=== PATIENT | female | born 1990 | race African-American/Black ===

== ENCOUNTER 2016-10-21 17:11 | Emergency (ER) | payer OTHER | END 2016-10-21 19:55 | disposition home or self-care (01) | DX: N92.1 Excessive and frequent menstruation with irregular cycle (principal) ==

== ENCOUNTER 2017-07-03 02:34 | Outpatient (CLI) | payer OTHER | END 2017-07-03 02:35 | disposition critical access hospital (66) | LOC: EMS 02:34 | PROVIDERS: ATTEND Surgery | DX: R55 Syncope and collapse (principal) | CPT/HCPCS: A0425; A0427 ==

== ENCOUNTER 2017-07-03 02:51 | Observation (INO) | payer OTHER ==
--- NOTE | 2017-07-03 03:13 | ED Physician Documentation ---
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 was in another room, but heard a noise suggestive of someone falling onto the ground, he immediately went and looked in the bathroom and found his on the floor, unconscious, with tonic stiffening of both upper extremities. he says she did not appear to be breathing for approximately 10 seconds, then started slow, gasping breaths, and rapidly followed by normal breathing. states patient was unconscious and unresponsive for approximately 60 to 90 seconds. On arrival to emergency department, patient is vomiting, but by the time of my evaluation, which was shortly after arrival, patient is awake, alert, oriented times three, smiling, and in no apparent distress and asymptomatic. Per medic report, patient had stable vital signs on their arrival, and en route, although she appears to be in atrial fibrillation on their EKG. Patient denies history of any cardiac problems including dysrhythmias, and denies history of syncope. 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 : None HEENT: None Psych: None Musculoskeletal: None Derm: Eczema - Past Surgical History Past Surgical History: Yes /FURNACE REPAIRER HELPER: Tubal ligation - Present Medications Home Medications: Ambulatory Orders Medication Instructions Recorded Confirmed Fluticasone [Flonase] 1 sprays GERALDINE DAILY #1 bottle 07/04/17 - Allergies Allergies/Adverse Reactions: Allergies Allergy/AdvReac Type Severity Reaction Status Date / Time No Known Drug Allergies Allergy Verified 07/03/17 03:05 - Social History Does the pt smoke?: No Smoking Status: Never smoker Does the pt drink ETOH?: No Does the pt have substance abuse?: No - Immunizations Immunizations are current?: Yes - POLST Patient has POLST: No PD ED PE NORMAL - Vitals Vital signs reviewed: Yes - General General: Alert and oriented X 3, No acute distress, Well developed/nourished - HEENT HEENT: PERRL, EOMI, Moist mucous membranes - Neck Neck: Supple, no meningeal sign - Cardiac Cardiac: RRR, No murmur, No gallop, No rub - Respiratory Respiratory: No respiratory distress, Clear bilaterally - Abdomen Abdomen: Soft, Non tender - Derm Derm: Normal color, Warm and dry - Extremities Extremities: No edema - Neuro Neuro: Alert and oriented X 3, 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, No motor deficit, No sensory deficit, Normal speech Eye Opening: Spontaneous Motor: Obeys Commands Verbal: Oriented GCS Score: 15 Results - Vitals Vitals: Oxygen O2 Source Room air - EKG (time done) No standard instances Rate: Rate (enter#) (73) Rhythm: NSR [place]: Normal Intervals: Normal MS QRS: Normal Ischemia: Normal ST segments, T wave inversion (V3, V4) - Labs Labs: Laboratory Tests 07/03/17 07/03/17 07/03/17 03:35 03:35 03:35 WBC 8.8 RBC 4.35 Hgb 12.3 Hct 36.9 L MCV 84.7 MCH 28.2 MCHC 33.3 RDW 13.1 Plt Count 300 MPV 8.3 Neut # 4.1 Lymph # 3.8 H [place] # 0.7 Eos # 0.2 Baso # 0.1 Absolute Nucleated RBC 0.00 Nucleated RBC % 0.0 D-Dimer Sodium 141 Potassium 3.2 L Chloride 106 Carbon Dioxide 24 Anion Gap 11.0 BUN 10 Creatinine 0.9 Estimated GFR (MDRD) 90 Glucose 102 H Calcium 8.7 Phosphorus Magnesium Troponin I < 0.04 TSH Ur Specific [place] Urine HCG, Qual 07/03/17 07/03/17 07/03/17 03:35 03:35 03:35 WBC RBC Hgb Hct MCV MCH MCHC RDW Plt Count MPV Neut # Lymph # [place] # Eos # Baso # Absolute Nucleated RBC Nucleated RBC % D-Dimer 269.2 H Sodium Potassium Chloride Carbon Dioxide Anion Gap BUN Creatinine Estimated GFR (MDRD) Glucose Calcium Phosphorus 2.3 L Magnesium 1.8 Troponin I TSH 1.59 Ur Specific [place] Urine HCG, Qual 07/03/17 04:09 WBC RBC Hgb Hct MCV MCH MCHC RDW Plt Count MPV Neut # Lymph # [place] # Eos # Baso # Absolute Nucleated RBC Nucleated RBC % D-Dimer Sodium Potassium Chloride Carbon Dioxide Anion Gap BUN Creatinine Estimated GFR (MDRD) Glucose Calcium Phosphorus Magnesium Troponin I TSH Ur Specific [place] 1.020 Urine HCG, Qual NEGATIVE PD MEDICAL DECISION MAKING - ED course Complexity details: reviewed results, re-evaluated patient, considered differential, d/w patient ED course: D/W Dr. Pizano, cardiology delivery consultant at [facility] ([place] recommends admission, can admit to [facility] (no indication for transfer at this time ) for observation and echocardiogram, consider CTA chest, and discharge if observation and testing unremarkable. Also, if patient does not spontaneously convert to NSR prior to discharge, will need to start patient on appropriate anticoagulation (for atrial fibrillation). Departure - Departure Disposition: ED Place in Observation Clinical Impression: Syncope, Atrial fibrillation Condition: Stable Discharge Date/Time: 07/03/17 06:10
[2017-07-03 03:45] LABS: BASOPHILS # (AUTO) 0.1 10^3/uL (0.0-0.1); EOSINOPHILS # (AUTO) 0.2 10^3/uL (0.0-0.7); EOSINOPHILS % (AUTO) 1.8 %; HGB - HEMOGLOBIN 12.3 g/dL (12.0-16.0); LYMPHOCYTES # (AUTO) 3.8 10^3/uL (1.5-3.5); LYMPHOCYTES % (AUTO) 42.8 %; MEAN CORPUSCULAR HEMOGLOBIN 28.2 pg (27.0-31.0); MEAN CORPUSCULAR HGB CONC 33.3 g/dL (32.0-36.0); MEAN CORPUSCULAR VOLUME 84.7 fL (81.0-99.0); MEAN PLATELET VOLUME 8.3 fL (7.9-10.8); MONOCYTES # (AUTO) 0.7 10^3/uL (0.0-1.0); MONOCYTES % (AUTO) 7.6 %; NEUTROPHILS # (AUTO) 4.1 10^3/uL (1.5-6.6); NEUTROPHILS % (AUTO) 46.8 %; PLT - PLATELET COUNT 300 10^3/uL (130-450); RED BLOOD COUNT 4.35 10^6/uL (4.20-5.40); RED CELL DISTRIBUTION WIDTH 13.1 % (12.0-15.0); WHITE BLOOD COUNT 8.8 x10^3/uL (4.8-10.8)
[2017-07-03 03:52] LABS: CALCIUM 8.7 mg/dL (8.5-10.3); CREATININE 0.9 mg/dL (0.4-1.0)
--- NOTE | 2017-07-03 04:04 | XRAY Preliminary Report ---
Exam: XR CHEST 2 VIEW PA/LAT IMPRESSION: Stable negative 2-view chest radiography. [facility] SITE ID: [id number]
--- NOTE | 2017-07-03 04:06 | XRAY Report ---
EXAM: CHEST RADIOGRAPHY EXAM DATE: 07/03/2017 03:53 AM. CLINICAL HISTORY: Syncope, dysrhythmia. COMPARISON: 06/09/2014. TECHNIQUE: 2 views. FINDINGS: Lungs/Pleura: No focal opacities evident. No pleural effusion. No pneumothorax. Normal volumes. Mediastinum: Heart and mediastinal contours are unremarkable. Other: None. IMPRESSION: Stable negative 2-view chest radiography. [facility] Referring Provider Line: [phone] SITE ID: [id number]
[2017-07-03 04:18] LABS: HCG UR QUAL NEGATIVE
[2017-07-03] MEDS ORDERED: HYDROcod/ACETAM 10 MG/325 MG TABLET PO PRN (05:21)
[2017-07-03] MEDS ORDERED: SODIUM CHLORIDE FLUSH 0.9% 10 ML SYRINGE IVP PRN (05:21)
[2017-07-03] MEDS ORDERED: PROMETHAZINE 25 MG/1 ML VIAL IM PRN (05:21)
[2017-07-03] MEDS ORDERED: PROCHLORPERAZINE 10 MG/2 ML VIAL IVP PRN (05:21)
[2017-07-03] MEDS ORDERED: HYDROcod/ACETAM 5/325 MG TABLET PO PRN (05:21)
[2017-07-03] MEDS ORDERED: ZOLPIDEM 5 MG TABLET PO PRN (05:21)
[2017-07-03] MEDS ORDERED: ONDANSETRON 4 MG/2 ML VIAL IVP PRN (05:21)
[2017-07-03] MEDS ORDERED: IOPAMIDOL-300 100 ML VIAL ONE (05:50)
[2017-07-03] MEDS ORDERED: NS W/20 MEQ KCL 1,000 ML IV SCH ×2 (06:00→15:34)
[2017-07-03] MEDS ORDERED: IOPAMIDOL-300 100 ML VIAL IVP ONE ×2 (06:17→06:41)
--- NOTE | 2017-07-03 06:40 | HISTORY & PHYSICAL EXAMINATION ---
Chief Complaint - Chief Complaint Chief Complaint: Syncope History of Present Illness - Admitted From Admitted From:: Emergency department - History Obtained From Records Reviewed: Yes History obtained from: Patient and her Exam Limitations: None - History of Present Illness HPI Comment/Other: Patient is a very pleasant 26-year-old -[place]ub[place] female with no significant past medical history who presented to the emergency department with an episode of syncope. The patient states that she was in her normal state of health and this morning her daughter was crying and woke her up at around 3 AM. She states that she went to go check in on her daughter and her daughter had to go to the bathroom so she took her and placed her on the toilet and states the next thing she remembers is waking up with her over her. According to the patient's he heard a loud thud in the bathroom he thought somebody was slamming the toilet seat and went to go see what was going on. He states that when he got there he saw his with her chin on the toilet seat and she was not responding. He states that he pulled her out of the bathroom and later on the floor in the bedroom. He states that at that time she had her eyes rolled up and she was not breathing. He did not witness any tonic-clonic type activity. He did state that her tongue was protruded and she was biting down on it. He states that she awoke and started breathing and no more than about 10 seconds after he got her to the floor. After she woke she was fully alert and remembered up until she placed her daughter on the toilet seat. The patient denies having any chest pain, palpitations or shortness of air prior to the episode or after the episode. She did state that she was nauseated when she arrived in the emergency department and did have an episode of emesis. She denies any abdominal pain, diarrhea, urinary urgency, urinary frequency or dysuria. The patient denies any orthopnea or increased lower extremity swelling. The patient does admit to having had migraine headaches for about the last week. She states that these were new to her and she has not had migraines before. She states that she has been having light sensitivity as well as sensitivity to sound. She states that earlier today she did have a slight headache and took 2 Advil. She states that this afternoon she went out with some of her friends for lunch and did have 1 alcoholic beverage. The patient currently denies any headache, blurred vision, neck stiffness or any focal neurologic deficits. On presentation to the emergency department the patient was afebrile and all her vital signs were within normal limits. The patient underwent routine lab work which did reveal a mild hypokalemia of 3.2 but otherwise her electrolytes were within normal limits, her troponin was negative, TSH was normal and CBC was all within normal limits. The patient's urine hCG was negative. The patient did have a chest x-ray in the emergency department which was negative. The patient's EKG showed that she was in atrial fibrillation with some T-wave flattening and inversions in the anterolateral leads. The patient did not have any ST elevations or any major ischemic changes. Given the patient's new onset atrial fibrillation at such a young age in the setting of a syncopal episode the emergency room physician spoke with sales account representative residential remodeling subcontractor from [facility] in [place] and he recommended that the patient be placed in observation and undergo telemetry monitoring, as well as an echocardiogram and have a CT angiogram of her thorax to rule out PE. He stated that if the patient remains in atrial fibrillation during the hospitalization he would recommend giving her anticoagulation and then having her follow-up with sales account representative in 3 weeks for SABRA and cardioversion if she is still in atrial fibrillation. 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 SALES ADVISOR: reports: None : reports: None HEENT: reports: None Psych: reports: None Musculoskeletal: reports: None Derm: reports: Eczema MRSA Hx?: No Other Past Medical History: section for twins 2 years ago - Past Surgical History /SOLAR SALES ADVISOR: reports: section, Tubal ligation HEENT: reports: Tonsil/Adenoidectomy - Family & Social History Family History Comment/Other: Patient's mother has endometriosis, ovarian cyst, rheumatoid arthritis and fibromyalgia Patient's grandmother had diabetes Patient's aunt of a rare type of cancer Living arrangement: At home Living Situation: With spouse/s.o. Social History Notes: Patient is originally from [facility] she moved to [place] 4 years ago with her who is in the [employer]. Her and her have 3 children [id number] and one set of 2-year-old twins. The patient is a non-smoker she drinks occasionally and denies any illicit drug use. - POLST Patient has POLST: No POLST Status: Full Code Meds/Allgy - Home Medications Home Medications: Ambulatory Orders Medication Instructions Recorded Confirmed No Known Home Medications [No 07/03/17 07/03/17 Known Home Medications] - Allergies Allergies/Adverse Reactions: Allergies Allergy/AdvReac Type Severity Reaction Status Date / Time No Known Drug Allergies Allergy Verified 07/03/17 03:05 Review of Systems - Other Findings Other Findings: A comprehensive review of systems was performed the pertinent positives and negatives are stated above in the HPI and the remainder of the review of systems is negative. Exam - Vital Signs Reviewed Vital Signs: Yes Vital Signs: Vital Signs x48h Pulse Resp BP Pulse Ox 07/03/17 06:00 78 16 111/72 97 07/03/17 05:29 77 18 114/66 98 - Physical Exam General Appearance: positive: No acute distress, Alert, Other (obese) Eyes Bilateral: positive: Normal inspection, PERRL, EOMI, No lid inflammation, Conjunctivae nml, No scleral icterus ENT: positive: ENT inspection nml, Pharynx nml, Dry mucous membranes. negative : Purulent nasal drainage, Pharyngeal erythema, Oral lesions Neck: positive: Nml inspection, Thyroid nml, No JVD, Trachea midline. negative : Lymphadenopathy (R), Lymphadenopathy (L), Stiff neck, Carotid bruit, Tracheal deviation Respiratory: positive: Chest non-tender, No respiratory distress, Breath sounds nml. negative: Wheezes, Rales, Rhonchi Cardiovascular: positive: No murmur, No gallop, Irregularly irregular Peripheral Pulses: positive: 2+ Abdomen: positive: Non-tender, No organomegaly, Nml bowel sounds, No distention. negative: Guarding, Rebound, Hepatomegaly Back: positive: Nml inspection. negative: CVA tenderness (R), CVA tenderness (L ) Skin: positive: Color nml, No rash, Dry. negative: Cyanosis, Pallor, Skin rash Extremities: positive: Non-tender, Full ROM, Nml appearance, No pedal edema Neurologic/Psychiatric: positive: Oriented x3, CN's nml (2-12), Motor nml, Sensation nml, Mood/affect nml Conclusion/Plan - Problem List (1) Syncope Conclusion/Plan: Patient had a syncopal episode this morning without any prodrome. She did have migraines throughout the week but was asymptomatic before the syncope. The patient hit her head on a toilet seat and was found by her within seconds of the episode. She had no tonic clonic activity according to the and was unconscious for no more than 30 seconds. She had no post-ictal phase. She was nauseated after the episode and did vomit in the ER. She had no prior nausea or vomiting. Patients CXR was negative. Her Potassium was slightly low but besides that her electrolytes were within normal limits. The patient awoke fairly quickly after the episode and had no chest pain, shortness of breath or headache. She is not using any control pills but does have an IUD. She had no focal deficits. No fevers or chills. On presentation the patient was in atrial fibrillation on EKG and on tele. Patients syncope is concerning for a cardiac arrhythmia The Emergency room physician spoke with sales account representative residential remodeling subcontractor from [facility] in [place] and he recommended that the patient be placed in observation and undergo telemetry monitoring, as well as an echocardiogram and have a CT angiogram of her thorax to rule out PE. He stated that if the patient remains in atrial fibrillation during the hospitalization he would recommend giving her anticoagulation and then having her follow-up with sales account representative in 3 weeks for SABRA and cardioversion if she is still in atrial fibrillation. Plan: Tele monitoring [place] x3 Echo CTA Lungs to rule out PE IVFs Potassium replacement Qualifiers: Syncope type: unspecified Qualified Code(s): R55 - Syncope and collapse (2) Atrial fibrillation Conclusion/Plan: Patient appears to have a new onset of atrial fibrillation in the setting of a syncopal episode. Patient had no palpitations or chest pain prior to the episode and had no symptoms of a fib prior Patients rate was controlled on presentation It seems unlikely that patients a fib caused the syncope but it is concerning that this could be a cardiac syncope The emergency room physician spoke with sales account representative residential remodeling subcontractor from [facility] in [place] and he recommended that the patient be placed in observation and undergo telemetry monitoring, as well as an echocardiogram and have a CT angiogram of her thorax to rule out PE. He stated that if the patient remains in atrial fibrillation during the hospitalization he would recommend giving her anticoagulation and then having her follow-up with sales account representative in 3 weeks for SABRA and cardioversion if she is still in atrial fibrillation. Plan: Tele Echo IVFs CTA of the lungs to rule out PE Will start on anticoagulation if she stays in a fib and have her follow up with cardiology as an outpatient Trops x 3 TSH normal Qualifiers: Atrial fibrillation type: unspecified Qualified Code(s): I48.91 - Unspecified atrial fibrillation (3) Hypokalemia Conclusion/Plan: The patients K was 3.2 on presentation She did have nausea and vomiting which maybe the cause but K does not explain syncope Plan: Replace K with IVFs Monitor K - Lab Results Lab results reviewed: Yes Fish Bones: 07/03/17 03:35 07/03/17 03:35 Other Lab Results: Laboratory Results WBC 8.8 x10^3/uL (4.8-10.8) 07/03/17 03:35 RBC 4.35 10^6/uL (4.20-5.40) 07/03/17 03:35 Hgb 12.3 g/dL (12.0-16.0) 07/03/17 03:35 Hct 36.9 % (37.0-47.0) L 07/03/17 03:35 MCV 84.7 fL (81.0-99.0) 07/03/17 03:35 MCH 28.2 pg (27.0-31.0) 07/03/17 03:35 MCHC 33.3 g/dL (32.0-36.0) 07/03/17 03:35 RDW 13.1 % (12.0-15.0) 07/03/17 03:35 Plt Count 300 10^3/uL (130-450) 07/03/17 03:35 MPV 8.3 fL (7.9-10.8) 07/03/17 03:35 Neut # 4.1 10^3/uL (1.5-6.6) 07/03/17 03:35 Lymph # 3.8 10^3/uL (1.5-3.5) H 07/03/17 03:35 [place] # 0.7 10^3/uL (0.0-1.0) 07/03/17 03:35 Eos # 0.2 10^3/uL (0.0-0.7) 07/03/17 03:35 Baso # 0.1 10^3/uL (0.0-0.1) 07/03/17 03:35 Absolute Nucleated RBC 0.00 x10^3/uL 07/03/17 03:35 Nucleated RBC % 0.0 /100WBC 07/03/17 03:35 D-Dimer 269.2 ng/mL (200.0-255.0) H 07/03/17 03:35 Sodium 141 mmol/L (135-145) 07/03/17 03:35 Potassium 3.2 mmol/L (3.5-5.0) L 07/03/17 03:35 Chloride 106 mmol/L (101-111) 07/03/17 03:35 Carbon Dioxide 24 mmol/L (21-32) 07/03/17 03:35 Anion Gap 11.0 (6-13) 07/03/17 03:35 BUN 10 mg/dL (6-20) 07/03/17 03:35 Creatinine 0.9 mg/dL (0.4-1.0) 07/03/17 03:35 Estimated GFR (MDRD) 90 (>89) 07/03/17 03:35 Glucose 102 mg/dL (70-100) H 07/03/17 03:35 Calcium 8.7 mg/dL (8.5-10.3) 07/03/17 03:35 Troponin I < 0.04 ng/mL (<0.49) 07/03/17 03:35 TSH 1.59 uIU/mL (0.34-5.60) 07/03/17 03:35 Ur Specific [place] 1.020 (1.002-1.030) 07/03/17 04:09 Urine HCG, Qual NEGATIVE 07/03/17 04:09 - Diagnostic Imaging Results Diagnostic Imaging Results: positive: Final report reviewed Diagnostic Imaging Results Comments: Chest x-ray Impression: Stable negative two-view chest radiography. - EKG Results EKG Interpreted Independently: Yes EKG Findings: Atrial fibrillation with T-wave inversions and flattening in anterolateral leads. No ST elevations. Issues/Core Measures - Anticipated LOS Anticipated Stay Length: Less than 2 midnights - DVT/VTE - Prophylaxis VTE/DVT Prophylaxis med ordered at admit?: Yes
[2017-07-03 07:11] LABS: MAGNESIUM 1.8 mg/dL (1.7-2.8); PHOSPHORUS 2.3 mg/dL (2.5-4.6)
--- NOTE | 2017-07-03 07:15 | CT Preliminary Report ---
Exam: CT CHEST ANGIO (PE) IMPRESSION: 1. No evidence of pulmonary embolism. 2. No significant pulmonary parenchymal abnormality. [facility] SITE ID: [id number]
--- NOTE | 2017-07-03 07:18 | CT Report ---
EXAM: CT ANGIOGRAM CHEST EXAM DATE: 07/03/2017 06:29 AM. CLINICAL HISTORY: Syncope, new onset a fib and elevated d dimer. COMPARISON: None. TECHNIQUE: Routine helical imaging was performed through the chest in the pulmonary arterial phase. I V Contrast: 80 cc Isovue-300. Reconstructions: Coronal 3-D MIP reconstructions.Sagittal and coronal. In accordance with CT protocol optimization, one or more of the following dose reduction techniques w ere utilized for this exam: automated exposure control, adjustment of mA and/or KV based on patient s ize, or use of iterative reconstructive technique. FINDINGS: Pulmonary Arteries: There is adequate opacification through the segmental arteries. No evidence for a cute or chronic pulmonary emboli. Lungs and Pleura: No significant consolidation. Central Airways: Visualized central airways are without suspicious filling defects. Chest Wall: No significant abnormality. Thyroid: No significant abnormality. Mediastinum: Tissue within anterior mediastinum noted, suggesting thymic tissue. No convex borders de monstrated to suggest definite thymoma. No pathologic mediastinal lymphadenopathy. Heart: Normal in size. No significant pericardial effusion. Aorta: Normal caliber. Upper Abdomen: There is a small hiatal hernia. Bones: No suspicious bony lesions evident. IMPRESSION: 1. No evidence of pulmonary embolism. 2. No significant pulmonary parenchymal abnormality. [facility] Referring Provider Line: [phone] SITE ID: [id number]
[2017-07-03] MEDS: NEUTRA-PHOS 250 MG TABLET PO SCH ×2 (09:22→12:03)
[2017-07-03] MEDS: FAMOTIDINE 20 MG TABLET PO SCH (09:22)
[2017-07-03] MEDS: ENOXAPARIN 40 MG/0.4 ML SYRINGE SUBQ SCH (09:25)
[2017-07-03] MEDS: POLYETHYLENE GLYCOL 3350 17 GM PACKET PO SCH (09:25)
[2017-07-03] MEDS: SODIUM CHLORIDE FLUSH 0.9% 10 ML SYRINGE IVP SCH ×3 (09:26→18:33)
[2017-07-03] MEDS: ACETAMINOPHEN 325 MG TABLET PO PRN (13:11)
--- NOTE | 2017-07-03 15:11 | MRI Preliminary Report ---
Exam: MRI BRAIN W/O IMPRESSION: 1.Normal MRI of the brain without contrast. 2. Note is made of mildly expanded and partially empty sella turcica. The pituitary gland is unremark able. 3. Opacification of the left frontal sinus. [facility] SITE ID: [id number]
--- NOTE | 2017-07-03 15:14 | MRI Report ---
EXAM: MRI BRAIN WITHOUT CONTRAST EXAM DATE: 07/03/2017 12:52 PM. CLINICAL HISTORY: New L frontal HENS[place] and new syncope. Patient fainted at 1145 hrs. COMPARISON: None. TECHNIQUE: Multiplanar, multisequence T1-weighted and fluid-sensitive MR sequences of the brain were performed. Sequences optimized for routine evaluation. Other: None. IV Contrast: None. FINDINGS: Brain Volume: Normal for age. Parenchyma/Dura: No mass, acute infarct or hemorrhage. No white matter lesions identified. Ventricles/Cisterns: No hydrocephalus. No abnormal extra-axial fluid collection or hemorrhage. Orbits: Symmetric and unremarkable. Sella Turcica: Note is made of a mildly expanded and partially empty sella turcica. The pituitary gla nd, cavernous sinuses, suprasellar cistern and optic chiasm are unremarkable. IAC: Symmetric and unremarkable. Vasculature: Normal signal flow void is seen in the major arterial structures at the skull base. Sinuses: Opacification of the left frontal sinus is seen extending to the frontoethmoidal recess. The remainder of the paranasal sinuses are clear. The mastoid air cells are clear. Bones: No focal pathologic appearing marrow signal changes. Other: None. IMPRESSION: 1.Normal MRI of the brain without contrast. 2. Note is made of mildly expanded and partially empty sella turcica. The pituitary gland is unremark able. 3. Opacification of the left frontal sinus. [facility] Referring Provider Line: [phone] SITE ID: [id number]
[2017-07-03] MEDS: OXYMETAZOLINE NASAL SPRAY NAS PRN ×2 (16:18→16:20)
[2017-07-03] MEDS: ASPIRIN EC 81 MG TABLET PO SCH (16:19)
[2017-07-03] MEDS: FLUTICASONE NASAL SPRAY NAS SCH (17:21)
[2017-07-03] MEDS ORDERED: POTASSIUM CHLORIDE 20 MEQ TABLET PO SCH (20:16)
[2017-07-04] MEDS: SODIUM CHLORIDE FLUSH 0.9% 10 ML SYRINGE IVP SCH ×2 (06:54→15:24)
[2017-07-04 08:23] LABS: BASOPHILS % (AUTO) 0.7 %; EOSINOPHILS # (AUTO) 0.1 10^3/uL (0.0-0.7); EOSINOPHILS % (AUTO) 1.8 %; HGB - HEMOGLOBIN 11.8 g/dL (12.0-16.0); LYMPHOCYTES # (AUTO) 3.1 10^3/uL (1.5-3.5); LYMPHOCYTES % (AUTO) 50.7 %; MEAN CORPUSCULAR HEMOGLOBIN 28.3 pg (27.0-31.0); MEAN CORPUSCULAR HGB CONC 33.1 g/dL (32.0-36.0); MEAN CORPUSCULAR VOLUME 85.6 fL (81.0-99.0); MEAN PLATELET VOLUME 8.2 fL (7.9-10.8); MONOCYTES # (AUTO) 0.3 10^3/uL (0.0-1.0); MONOCYTES % (AUTO) 4.5 %; NEUTROPHILS # (AUTO) 2.6 10^3/uL (1.5-6.6); NEUTROPHILS % (AUTO) 42.3 %; PLT - PLATELET COUNT 286 10^3/uL (130-450); RED BLOOD COUNT 4.18 10^6/uL (4.20-5.40); RED CELL DISTRIBUTION WIDTH 13.3 % (12.0-15.0); WHITE BLOOD COUNT 6.2 x10^3/uL (4.8-10.8)
[2017-07-04 08:34] LABS: ALBUMIN 3.7 g/dL (3.2-5.5); ALBUMIN/GLOBULIN RATIO 1.4 (1.0-2.2); ALKALINE PHOSPHATASE 50 IU/L (42-121); ALT ALANINE AMINOTRANSFERASE 13 IU/L (10-60); AST ASPARTATE AMINOTRANSFERASE 18 IU/L (10-42); BILIRUBIN,TOTAL 0.7 mg/dL (0.2-1.0); BUN - BLOOD UREA NITROGEN 8 mg/dL (6-20); CALCIUM 8.3 mg/dL (8.5-10.3); CARBON DIOXIDE - CO2 23 mmol/L (21-32); CHLORIDE 109 mmol/L (101-111); CHOLESTEROL 149 mg/dL; CREATININE 0.8 mg/dL (0.4-1.0); GFR - MDRD 104 (>89); GLUCOSE 124 mg/dL (70-100); HDL CHOLESTEROL 37 mg/dL; LDL CHOLESTEROL,CALCULATED 99 mg/dL; LDL/HDL RATIO 2.7 (<4.4); MAGNESIUM 1.8 mg/dL (1.7-2.8); PHOSPHORUS 2.4 mg/dL (2.5-4.6); SODIUM 138 mmol/L (135-145); TOTAL PROTEIN 6.4 g/dL (6.7-8.2); VLDL CHOLESTEROL 13 mg/dL
[2017-07-04] MEDS: ACETAMINOPHEN 325 MG TABLET PO PRN (09:15)
[2017-07-04] MEDS: FAMOTIDINE 20 MG TABLET PO SCH (09:16)
[2017-07-04] MEDS: POLYETHYLENE GLYCOL 3350 17 GM PACKET PO SCH (09:18)
[2017-07-04] MEDS: FLUTICASONE NASAL SPRAY NAS SCH (09:18)
[2017-07-04] MEDS: OXYMETAZOLINE NASAL SPRAY NAS PRN (09:18)
[2017-07-04] MEDS: ASPIRIN EC 81 MG TABLET PO SCH (09:22)
[2017-07-04] MEDS: ENOXAPARIN 40 MG/0.4 ML SYRINGE SUBQ SCH (09:22)
[2017-07-04 14:22] VITALS: BP 112/70
--- NOTE | 2017-07-04 14:33 | Discharge Plan ---
Discharge Plan Disposition: 01 Home, Self Care Condition: Stable Prescriptions: Fluticasone [Flonase] 1 sprays GERALDINE DAILY #1 bottle Diet: Regular Activity Restrictions: No Restrictions Shower Restrictions: No Driving Restrictions: Yes (No driving til cleared by your PCP or a Neurologist) Instruction Topics: Syncope, ED Fainting Unkn Cause, Electroencephalogram Ch Additional Instructions or Follow Up instructions: Start taking a baby aspirin daily (81 mg) Use the Flonase nasal spray and nasal decongestant spray ([id number] medication) for 3-4 days more, to treat the sinusitis. See your doctor for follow-up: to get a Cardiology evaluation, a Neurology evaluation , an EEG scheduled and for clearance for driving. Return to the hospital if you should experience any further symptoms of lightheadedness, fainting, clenching/tongue biting or seizures. No Smoking: If you smoke, Please STOP! Call for help.
--- NOTE | 2017-08-08 22:17 | DISCHARGE SUMMARY ---
DATE OF SERVICE: 08/07/2017 Physician: Gabriela Alcaraz MD DATE OF ADMISSION: 07/03/2017 DATE OF DISCHARGE: 07/04/2017 HISTORY OF PRESENT ILLNESS: This is a 26-year-old black female with a negative past medical history, on no prescription medications. There was NO ALLERGIES. She lives at home with her hausband and children. The patient was brought to the emergency room after being found down in her bathroom by her mother, who was visiting from out of town. The patient remembers taking 1 daughter to the bathroom in the middle of the night. The mother heard a thud and came to find the patient supine on the bathroom floor with her teeth clenched and a different child was on the toilet seat (the patient does not remember taking the first child to bed and bring the second one to use the toilet). The then arrived and they both witnessed that the patient was not responding to her name, but did not have tonic-clonic activity. When she awoke, she was stabilized and brought to the emergency room by EMS. She was placed in observation for evaluation for syncope versus seizures. HOSPITAL COURSE AND DISCHARGE DIAGNOSES 1. Syncope versus seizure. The patient underwent head CT which was unremarkable, carotid Doppler which was unremarkable, Echo which was unremarkable with a normal ejection fraction of 65 % and normal RV size and function, mild tricuspid regurgitation with normal PA pressure of 30 mmHg. Her brain MRI was unremarkable. She underwent a chest CT angio to rule out pulmonary embolism and this also showed no evidence of pulmonary embolism and no significant parenchymal abnormality. The patient was not orthostatic. I spoke to a neurologist operations support specialist on that day, in [place], and was given advice to not start empiric antiseizure medications, but to have EEG and Neurology evaluation as an outpatient. 2. Sinusitis. The only positive finding on imaging was sinusitis for which the patient was started on Flonase nasal spray and discharged with this. ALLERGIES: NO KNOWN ALLERGIES. MEDICATIONS AT DISCHARGE 1. Flonase nasal spray. 2. One baby aspirin daily. IMAGING AND LABS: Reviewed and summarized above. PHYSICAL EXAMINATION AT DISCHARGE: Stable status VITAL SIGNS: Blood pressure 97/50, which is her normal, heart rate of 65 in sinus rhythm, afebrile, and room air saturation 98%. Her entire physical exam was unremarkable. FOLLOWUP: With her PCP and to be referred to a Neurologist as well as for EEG testing. A Cardiology evaluation is also advised (there was a possible remote history of lone atrial fibrillation). Patient was told at discharge not to drive until cleared by her PCP or Neurologist. CODE STATUS: FULL CODE. TIME REQUIRED TO COMPLETE THIS ENTIRE DISCHARGE: 45 minutes. TD: 08/08/2017 08:05 MAXIME
== END 2017-07-04 15:15 | disposition home or self-care (01) ==
LOC: EDUNIT# → ED 02:51 → OBS 05:22
PROVIDERS: ADMIT Internal Medicine; ATTEND Internal Medicine
DX: R40.20 Unspecified coma (principal); I48.91 Unspecified atrial fibrillation; J32.9 Chronic sinusitis, unspecified; R40.2412 Glasgow coma scale score 13-15, at arrival to emergency department; E87.6 Hypokalemia; R11.2 Nausea with vomiting, unspecified; E66.9 Obesity, unspecified; Z68.37 Body mass index [BMI] 37.0-37.9, adult
CPT/HCPCS: 36415; 70551; 71020; 71275; 80048; 80053; 80061; 81025; 82533; 83735; 84100; 84439; 84443; 84484; 85025; 85379; 93005; 93306; 96361; 96372; 96374; 99284; 99285; A9270; G0378; J1650; Q9967; 96375